=== PATIENT | female | born 1985 | race African-American/Black ===

== ENCOUNTER 2023-06-23 06:35 | Emergency (ER) | payer OTHER ==
[~2023-06-23] VITALS: Ht 162.6 cm; Wt 84.2 kg
[2023-06-23] MEDS ORDERED: ONDANSETRON 4MG ORAL DISINTEGRATING TAB PO ONE (07:40)
[2023-06-23] MEDS ORDERED: ACETAMINOPHEN TAB 650MG DOSE (2X325MG) PO ONE (07:40)
[2023-06-23 08:13] LABS: BASO % 0.1 % (0.0-1.0); EOS # 0.1 10^3/uL (0.0-0.5); EOS % 1.4 % (0.0-3.0); HEMATOCRIT 38.3 % (36.0-47.0); HEMOGLOBIN 12.8 g/dl (12.0-15.5); LYMPH # 1.7 10^3/uL (1.5-5.0); LYMPH % 24.9 % (24.0-44.0); MEAN CORPUSCULAR HEMOGLOBIN 29.5 pg (27.0-33.0); MEAN CORPUSCULAR HGB CONC 33.4 g/dl (32.0-36.5); MEAN CORPUSCULAR VOLUME 88.2 fl (80.0-96.0); MONO # 0.5 10^3/uL (0.0-0.8); NEUTROPHILS # 4.6 10^3/uL (1.5-8.5); NEUTROPHILS % 66.2 % (36.0-66.0); PLATELET COUNT, AUTOMATED 248 10^3/uL (150-450); RED BLOOD COUNT 4.34 10^6/uL (4.00-5.40)
[2023-06-23 08:17] LABS: APPEARANCE, URINE CLEAR (CLEAR); BACTERIA, URINE AUTO NEGATIVE (NEGATIVE); BILIRUBIN, URINE AUTO NEGATIVE (NEGATIVE); BLOOD, URINE BLOOD NEGATIVE (NEGATIVE); COLOR, URINE YELLOW (YELLOW); GLUCOSE, URINE (UA) AUTO NEGATIVE (NEGATIVE); KETONE, URINE AUTO NEGATIVE (NEGATIVE); LEUKOCYTE ESTERASE, URINE AUTO NEGATIVE (NEGATIVE); MUCUS, URINE SMALL (NEGATIVE); NITRITE, URINE AUTO NEGATIVE (NEGATIVE); PROTEIN, URINE AUTO NEGATIVE (NEGATIVE); RBC, URINE AUTO 0 /HPF (0-3); SPECIFIC GRAVITY URINE AUTO 1.019 (1.002-1.035); SQUAMOUS EPITHELIAL CELL UR AU 0 /HPF (0-6); UROBILINOGEN, URINE AUTO 0.2 mg/dL (0.0-2.0); WBC, URINE AUTO 0 /HPF (0-3)
[2023-06-23] MEDS ORDERED: METR-265 PO (09:55)
[2023-06-23 10:05] VITALS: BP 132/67; TEMP 98.4; O2SAT 99
== END 2023-06-23 10:07 | disposition home or self-care (01) ==
LOC: M ED 06:35
DX: O20.0 Threatened abortion (principal); O23.599 Infection of other part of genital tract in pregnancy, unspecified trimester; O34.11 Maternal care for benign tumor of corpus uteri, first trimester; O09.521 Supervision of elderly multigravida, first trimester; Z3A.01 Less than 8 weeks gestation of pregnancy; Z87.59 Personal history of other complications of pregnancy, childbirth and the puerperium

== ENCOUNTER 2023-12-27 06:23 | Inpatient (IN) | payer OTHER ==
[2023-12-27] VITALS (8 sets, daily range): BP systolic 136–156; BP diastolic 75–82; TEMP 96.2–97.3; O2SAT 96–99
[~2023-12-27] VITALS: Ht 162.6 cm; Wt 85.2 kg
[~2023-12-27 06:23] MED LIST: IRON15CH PO; METR-265 PO; PRENTAB53 PO; VITA250T26 PO; YASM3TAB2 PO
[2023-12-27] MEDS ORDERED: ONDANSETRON 4MG 2ML VIAL As Ordered ONE (06:54)
[2023-12-27] MEDS ORDERED: LIDOCAINE 2% 100MG/5ML SDV (FOR ANES.) As Ordered ONE (06:54)
[2023-12-27] MEDS ORDERED: propofoL 200 MG/20 ML VIAL As Ordered ONE (06:54)
[2023-12-27] MEDS ORDERED: ROCURONIUM BROMIDE 50MG/5ML VIAL As Ordered ONE (06:54)
[2023-12-27] MEDS ORDERED: SUGAMMADEX SODIUM 500 MG/5 ML VIAL (BRIDION) As Ordered ONE (06:54)
[2023-12-27] MEDS ORDERED: KETOROLAC 60MG 2ML VIAL As Ordered ONE (06:54)
[2023-12-27] MEDS ORDERED: MIDAZOLAM INJ 2MG/2ML VIAL As Ordered ONE (07:03)
[2023-12-27] MEDS ORDERED: fentaNYL 250 MCG/5 ML INJECTION As Ordered ONE (07:03)
[2023-12-27 07:05] LABS: HEMATOCRIT 40.9 % (36.0-47.0); HEMOGLOBIN 13.5 g/dl (12.0-15.5); MEAN CORPUSCULAR VOLUME 84.9 fl (80.0-96.0); PLATELET COUNT, AUTOMATED 221 10^3/uL (150-450); RED BLOOD COUNT 4.82 10^6/uL (4.00-5.40)
[2023-12-27] MEDS: LIDOCAINE 1% SDV 30ML VIAL As Ordered ONE (07:15)
[2023-12-27] MEDS: SILVER NITRATE APPLICATOR (1 = QTY 10) As Ordered ONE (07:15)
[2023-12-27] MEDS: LR 1,000 ML IV SCH ×3 (07:22→13:15)
[2023-12-27] MEDS ORDERED: FERR325T3 PO (07:26)
[2023-12-27 07:27] LABS: ALBUMIN 3.4 G/DL (3.2-5.2); ALKALINE PHOSPHATASE 66 U/L (46-116); ALT/SGPT 36 U/L (7.0-40); AST/SGOT 30 U/L (<34); BILIRUBIN,TOTAL 0.3 MG/DL (0.3-1.2); BLOOD UREA NITROGEN 12 MG/DL (9-23); CALCIUM LEVEL 8.7 MG/DL (8.5-10.1); CARBON DIOXIDE LEVEL 24 MMOL/L (20-31); CHLORIDE LEVEL 106 MMOL/L (98-107); CREATININE FOR GFR 0.56 MG/DL (0.55-1.30); GLOMERULAR FILTRATION RATE > 60.0 (>60); GLUCOSE, FASTING 96 MG/DL (60-100); POTASSIUM SERUM 4.3 MMOL/L (3.5-5.1); SODIUM LEVEL 137 MMOL/L (136-145); TOTAL PROTEIN 7.2 G/DL (5.7-8.2)
[2023-12-27] MEDS ORDERED: HOME MED LIST COMPLETE! XX SCH (07:30)
[2023-12-27] MEDS: ceFAZolin SOD 2 GM in IV 1 EA IV ONE (07:57)
[2023-12-27] MEDS ORDERED: ACETAMINOPHEN 1000MG 100ML IV BAG As Ordered ONE (08:02)
[2023-12-27] MEDS ORDERED: HYDROmorphone HCL 2MG/ML 1ML VIAL As Ordered ONE (08:40)
[2023-12-27] MEDS ORDERED: dexmedeTOMIDine (4MCG/ML)200MCG/50ML BTL (PRECEDEX) As Ordered ONE (08:41)
[2023-12-27] MEDS: TRANEXAMIC ACID 100 MG/ML 10ML VIAL As Ordered ONE (09:41)
[2023-12-27] MEDS: VASOPRESSIN INJ 20UNITS/ML 1ML VIAL As Ordered ONE (10:45)
[2023-12-27] MEDS ORDERED: ONDANSETRON 4MG 2ML VIAL IV PRN (11:10)
[2023-12-27] MEDS ORDERED: HYDROMORPHONE HCL 0.5 MG/ 0.5 ML SYRINGE IV PRN (11:10)
[2023-12-27] MEDS ORDERED: oxyCODONE 5MG TAB PO PRN ×2 (11:10→11:25)
[2023-12-27] MEDS ORDERED: fentaNYL 100 MCG/2 ML INJECTION IV PRN (11:10)
[2023-12-27] MEDS ORDERED: MORPHINE 2 MG/ML 1ML VIAL IV PRN (11:25)
[2023-12-27] MEDS ORDERED: PROMETHAZINE 25 MG TAB PO PRN (11:25)
[2023-12-27] MEDS: KETOROLAC 30 MG/ML 1ML VIAL IV SCH (12:10)
[2023-12-27] MEDS: ONDANSETRON 4MG 2ML VIAL IV PRN (13:21)
[2023-12-27] MEDS: ACETAMINOPHEN 500 MG TAB PO SCH (15:26)
[2023-12-27] MEDS: GABAPENTIN 300 MG CAP PO SCH (15:26)
[2023-12-27] MEDS: DOCUSATE SODIUM 100MG CAPSULE PO SCH (21:17)
[2023-12-27] MEDS: MIRALAX *UNIT DOSE* 17GM PACKET PO SCH (21:17)
[2023-12-27] MEDS: oxyCODONE 5MG TAB PO PRN (22:14)
[2023-12-28] VITALS (8 sets, daily range): BP systolic 124–155; BP diastolic 66–82; TEMP 97.4–98.2; O2SAT 96–100
[2023-12-28 10:10] LABS: BASO % 0.1 % (0.0-1.0); EOS % 0.3 % (0.0-3.0); HEMATOCRIT 33.7 % (36.0-47.0); LYMPH # 1.5 10^3/uL (1.5-5.0); LYMPH % 19.9 % (24.0-44.0); MEAN CORPUSCULAR HEMOGLOBIN 27.8 pg (27.0-33.0); MEAN CORPUSCULAR HGB CONC 31.8 g/dl (32.0-36.5); MEAN CORPUSCULAR VOLUME 87.5 fl (80.0-96.0); MONO # 0.4 10^3/uL (0.0-0.8); MONO % 5.2 % (2.0-8.0); NEUTROPHILS # 5.5 10^3/uL (1.5-8.5); NEUTROPHILS % 74.1 % (36.0-66.0); PLATELET COUNT, AUTOMATED 158 10^3/uL (150-450); RED BLOOD COUNT 3.85 10^6/uL (4.00-5.40); WHITE BLOOD COUNT 7.5 10^3/uL (4.0-10.0)
[2023-12-28 10:30] LABS: HEMOGLOBIN 10.7 g/dl (12.0-15.5)
[2023-12-28] MEDS: SIMETHICONE 80MG CHEW TAB PO PRN (11:24)
[2023-12-28] MEDS: IBUPROFEN 800 MG TAB PO SCH (13:36)
[2023-12-29 04:00] VITALS: BP 147/82; TEMP 97.6; O2SAT 98
[2023-12-29 14:30] VITALS: BP 128/72; TEMP 97.5; O2SAT 99
== END 2023-12-29 15:20 | disposition home or self-care (01) | DRG 743 ==
LOC: M OR 06:23 → INTOOBSV 06:23 → EDSTATUS 11:00 → M PED 12:15 → OBSVTOIN 12-28 12:35 → UNDODISIN 12-29 15:20
PROVIDERS: ADMIT Obstetrics & Gynecology; ATTEND Obstetrics & Gynecology
PROC: 0UB90ZZ Excision of Uterus, Open Approach (ICD-10-PCS; principal; 2023-12-27 07:30)
DX: D25.9 Leiomyoma of uterus, unspecified (principal); D50.9 Iron deficiency anemia, unspecified; N93.8 Other specified abnormal uterine and vaginal bleeding; I10 Essential (primary) hypertension; Z87.59 Personal history of other complications of pregnancy, childbirth and the puerperium

== ENCOUNTER 2024-11-21 06:32 | Emergency (ER) | payer OTHER ==
[~2024-11-21] VITALS: Ht 162.6 cm; Wt 88.3 kg
[~2024-11-21 06:32] MED LIST changes: +FERR325T3 PO
[2024-11-21 07:21] LABS: APPEARANCE, URINE CLEAR (CLEAR); BACTERIA, URINE AUTO NEGATIVE (NEGATIVE); BILIRUBIN, URINE AUTO NEGATIVE (NEGATIVE); BLOOD, URINE BLOOD 2+ (NEGATIVE); COLOR, URINE YELLOW (YELLOW); GLUCOSE, URINE (UA) AUTO NEGATIVE (NEGATIVE); KETONE, URINE AUTO NEGATIVE (NEGATIVE); LEUKOCYTE ESTERASE, URINE AUTO NEGATIVE (NEGATIVE); MUCUS, URINE SMALL (NEGATIVE); NITRITE, URINE AUTO NEGATIVE (NEGATIVE); PROTEIN, URINE AUTO NEGATIVE (NEGATIVE); RBC, URINE AUTO 0 /HPF (0-3); SPECIFIC GRAVITY URINE AUTO 1.018 (1.002-1.035); SQUAMOUS EPITHELIAL CELL UR AU 0 /HPF (0-6); UROBILINOGEN, URINE AUTO 0.2 mg/dL (0.0-2.0); WBC, URINE AUTO 0 /HPF (0-3)
[2024-11-21 07:21] LABS: BASO % 0.4 % (0.0-1.0); EOS # 0.1 10^3/uL (0.0-0.5); EOS % 1.9 % (0.0-3.0); HEMATOCRIT 40.7 % (36.0-47.0); HEMOGLOBIN 13.2 g/dl (12.0-15.5); LYMPH # 2.3 10^3/uL (1.5-5.0); LYMPH % 40.7 % (24.0-44.0); MEAN CORPUSCULAR HEMOGLOBIN 28.9 pg (27.0-33.0); MEAN CORPUSCULAR HGB CONC 32.4 g/dl (32.0-36.5); MEAN CORPUSCULAR VOLUME 89.1 fl (80.0-96.0); MONO # 0.4 10^3/uL (0.0-0.8); MONO % 6.3 % (2.0-8.0); NEUTROPHILS # 2.9 10^3/uL (1.5-8.5); NEUTROPHILS % 50.5 % (36.0-66.0); PLATELET COUNT, AUTOMATED 243 10^3/uL (150-450); RED BLOOD COUNT 4.57 10^6/uL (4.00-5.40); WHITE BLOOD COUNT 5.7 10^3/uL (4.0-10.0)
[2024-11-21 07:39] LABS: HCG, SERUM QUANTITATIVE 17.2 MIU/ML (<4.2)
[2024-11-21 07:49] LABS: BLOOD UREA NITROGEN 10 MG/DL (9-23); CALCIUM LEVEL 8.7 MG/DL (8.5-10.1); CARBON DIOXIDE LEVEL 26 MMOL/L (20-31); CHLORIDE LEVEL 105 MMOL/L (98-107); CREATININE FOR GFR 0.55 MG/DL (0.55-1.30); GLOMERULAR FILTRATION RATE > 90.0 (>58); GLUCOSE, FASTING 98 MG/DL (60-100); POTASSIUM SERUM 4.3 MMOL/L (3.5-5.1); SODIUM LEVEL 141 MMOL/L (136-145)
[2024-11-21 08:50] VITALS: BP 121/72; TEMP 98.1; O2SAT 100
== END 2024-11-21 08:55 | disposition home or self-care (01) ==
LOC: M ED 06:32
DX: O03.9 Complete or unspecified spontaneous abortion without complication (principal); Z79.810 Long term (current) use of selective estrogen receptor modulators (SERMs); Z79.899 Other long term (current) drug therapy

== ENCOUNTER → 2025-05-07 | Outpatient (REF) | LOC: M PLAIMG 08:37 | PROVIDERS: ATTEND Internal Medicine | DX: R52 Pain, unspecified (principal) ==

== ENCOUNTER 2025-06-21 10:57 | Day surgery (SDC) | payer OTHER ==
[~2025-06-21] VITALS: Ht 162.6 cm; Wt 90.3 kg
[~2025-06-21 10:57] MED LIST changes: +METF-838 PO; +PRENTAB9 PO; +PROG1CAP9 PO; +VITA100093 PO
[2025-06-21] MEDS: LR 1,000 ML IV SCH (12:29)
[2025-06-21] MEDS: SCOPOLAMINE 1MG TRANSDERMAL PATCH TOP ONE (12:30)
[2025-06-21 12:50] LABS: ALT/SGPT 27 U/L (7.0-40); AST/SGOT 28 U/L (<34); CALCIUM LEVEL 9.1 MG/DL (8.5-10.1); CARBON DIOXIDE LEVEL 27 MMOL/L (20-31); CHLORIDE LEVEL 102 MMOL/L (98-107); CREATININE FOR GFR 0.54 MG/DL (0.55-1.30); GLOMERULAR FILTRATION RATE > 90.0 (>58); POTASSIUM SERUM 4.3 MMOL/L (3.5-5.1); SODIUM LEVEL 139 MMOL/L (136-145)
[2025-06-21] MEDS ORDERED: LIDOCAINE 2% 100 MG/5 ML SDV (FOR ANES.) As Ordered ONE (14:02)
[2025-06-21] MEDS ORDERED: MIDAZOLAM INJ 2 MG/2 ML VIAL As Ordered ONE (14:02)
[2025-06-21] MEDS ORDERED: ONDANSETRON 4MG/2ML VIAL As Ordered ONE (14:03)
[2025-06-21] MEDS ORDERED: dexAMETHasone 4 MG/ML 1 ML VIAL As Ordered ONE (14:03)
[2025-06-21] MEDS ORDERED: KETOROLAC 30 MG/ML 1 ML VIAL As Ordered ONE (14:03)
[2025-06-21] MEDS ORDERED: ACETAMINOPHEN 1000MG/100ML IV BAG As Ordered ONE (14:03)
[2025-06-21] MEDS ORDERED: HYDROMORPHONE HCL 0.5 MG/0.5 ML SYRINGE IV PRN (15:00)
[2025-06-21] MEDS ORDERED: ONDANSETRON 4MG/2ML VIAL IV PRN (15:00)
[2025-06-21 16:45] VITALS: BP 122/70; TEMP 98.5; O2SAT 99
== END 2025-06-21 17:00 | disposition home or self-care (01) ==
LOC: M SDC 10:57
PROVIDERS: ATTEND Obstetrics & Gynecology
DX: N97.9 Female infertility, unspecified (principal); N96 Recurrent pregnancy loss; Z86.018 Personal history of other benign neoplasm; R73.03 Prediabetes; Z79.84 Long term (current) use of oral hypoglycemic drugs
CPT/HCPCS: 58555; 80053; 81025; 88305; J0131; J0665; J1100; J1885; J2250; J2405; J2765; J3010